=== PATIENT | female | born 1945 | race Caucasian/White ===

== ENCOUNTER 2020-02-07 09:30 | Outpatient (CLI) | payer MEDICARE, SELFPAY ==
--- NOTE | 2020-02-07 11:00 | NEURO_ITS ---
Patient Number: [id number] Impression: # Complains of numbness of hands and feet. # Sensory component bilateral Carpal Tunnel Syndrome. # Normal nerve conduction study of lower extremities. # Normal needle/EMG exam. # Clinical correlation recommended; problem could be related to small fiber neuropathy. Nerve Conduction Studies Anti Sensory Summary Table Stim Site NR Peak (ms) P-T Amp (?V) Site1 Site2 Delta-P (ms) Dist (cm) Oseas (m/s) Left Median Anti Sensory (2-3nd Digit) Wrist 5.2 14.5 Wrist 2-3nd Digit 5.2 14.0 27 Wrist 5.0 6.5 Wrist 2-3nd Digit 5.2 14.0 27 Right Median Anti Sensory (2-3nd Digit) Wrist 4.8 17.1 Wrist 2-3nd Digit 4.8 14.0 29 Wrist 5.0 16.4 Wrist 2-3nd Digit 4.8 14.0 29 Left Radial Anti Sensory (Base 1st Digit) Wrist 2.1 35.5 Wrist Base 1st Digit 2.1 0.0 Right Radial Anti Sensory (Base 1st Digit) Wrist 2.3 24.8 Wrist Base 1st Digit 2.3 0.0 Left Sup Fibular Anti Sensory (Ant Lat Mall) 14 cm 3.3 12.0 14 cm Ant Lat Mall 3.3 16.0 48 Right Sup Fibular Anti Sensory (Ant Lat Mall) 14 cm 3.8 7.1 14 cm Ant Lat Mall 3.8 16.0 42 Left Sural Anti Sensory (Lat Mall) Calf 4.0 8.1 Calf Lat Mall 4.0 16.0 40 Right Sural Anti Sensory (Lat Mall) Calf 3.9 9.9 Calf Lat Mall 3.9 16.0 41 Left Ulnar Anti Sensory (5th Digit) Wrist 2.3 82.5 Wrist 5th Digit 2.3 14.0 61 Right Ulnar Anti Sensory (5th Digit) Wrist 2.3 54.4 Wrist 5th Digit 2.3 14.0 61 Motor Summary Table Stim Site NR Onset (ms) O-P Amp (mV) Site1 Site2 Delta-0 (ms) Dist (cm) Oseas (m/s) Left Median Motor (Abd Poll Brev) Wrist 3.4 2.3 Elbow Wrist 5.0 27.0 54 Elbow 8.4 2.4 ELB/ADM Wrist 0.4 0.0 ELB/ADM 3.8 3.9 Right Median Motor (Abd Poll Brev) Wrist 3.4 2.5 Elbow Wrist 5.0 27.0 54 Elbow 8.4 1.5 Left Peroneal Motor (Vastus Med) Ankle 4.9 1.5 Popit Ankle 6.7 35.0 52 Popit 11.6 1.3 Right Peroneal Motor (Vastus Med) Ankle 5.0 2.9 Popit Ankle 7.4 35.0 47 Popit 12.4 2.5 Left Tibial Motor (Abd Escalona Brev) Ankle 4.8 7.7 Knee Ankle 7.9 40.0 51 Knee 12.7 5.6 Right Tibial Motor (Abd [place] Brev) Ankle 5.0 4.6 Knee Ankle 8.7 40.0 46 Knee 13.7 3.2 Left Ulnar Motor (Abd Dig Minimi) Wrist 2.5 6.9 A Elbow Wrist 5.1 28.0 55 A Elbow 7.6 4.5 Right Ulnar Motor (Abd Dig Minimi) Wrist 3.0 5.7 A Elbow Wrist 4.9 27.0 55 A Elbow 7.9 4.7 F Wave Studies NR F-Lat (ms) L-R F-Lat (ms) Left Median (Mrkrs) (Abd Poll Brev) 29.20 0.00 Right Median (Mrkrs) (Abd Poll Brev) 29.20 0.00 Left Peroneal (Mrkrs) (EDB) 49.84 0.23 Right Peroneal (Mrkrs) (EDB) 50.07 0.23 Left Tibial (Mrkrs) (Abd Hallucis) 50.87 1.76 Right Tibial (Mrkrs) (Abd Hallucis) 49.11 1.76 Left Ulnar (Mrkrs) (Abd Dig Min) 26.44 0.29 Right Ulnar (Mrkrs) (Abd Dig Min) 26.73 0.29 EMG Side Muscle Nerve Root Ins Act Fibs Amp Dur Recrt Comment Right 1stDorInt Ulnar C8-T1 Nml Nml Nml Nml Nml Right Ext Indicis Radial (Post Int) C7-8 Nml Nml Nml Nml Nml Right Ext Digitorum Radial (Post Int) C7-8 Nml Nml Nml Nml Nml Right BrachioRad Radial C5-6 Nml Nml Nml Nml Nml Right PronatorTeres Median C6-7 Nml Nml Nml Nml Nml
== END 2020-02-07 09:31 | disposition home or self-care (01) ==
LOC: ANHNEURO 09:35
PROVIDERS: PCP Family Medicine
DX: G56.03 Carpal tunnel syndrome, bilateral upper limbs (principal); R20.0 Anesthesia of skin; R20.2 Paresthesia of skin
CPT/HCPCS: 95886; 95913

== ENCOUNTER 2020-05-13 01:00 | Outpatient (CLI) | payer MEDICARE, SELFPAY ==
[2020-05-13 19:05] LABS: SARS-CoV-2 RNA PCR Negative
== END 2020-05-13 01:01 | disposition home or self-care (01) ==
LOC: ANHCOVIDDT 01:02
PROVIDERS: PCP Family Medicine; Visit Provider Plastic Surgery
DX: Z01.812 Encounter for preprocedural laboratory examination (principal); Z20.828 Contact with and (suspected) exposure to other viral communicable diseases
CPT/HCPCS: 87635; C9803; U0003

== ENCOUNTER 2020-05-15 01:19 | Day surgery (SDC) | payer MEDICARE, SELFPAY ==
[2020-05-09 13:32] VITALS: BMI 26.2
--- NOTE | 2020-05-15 07:01 | WPDHPUPDATE1 ---
History and Physical Update Update Date/Time: 05/15/20 07:01 History and Physical has been reviewed, including an updated exam of the patient. There are NO changes in the patient's condition. Risks, benefits, and alternatives have been discussed and questions answered. Patient agrees to proceed with procedure.
[2020-05-15 11:34] VITALS: BP 139/74; PULSE 78; RESP 18; TEMP 36.7; O2SAT 98
[2020-05-15 12:03] VITALS: BP 139/67; PULSE 57; RESP 20; O2SAT 97
[2020-05-15 12:13] VITALS: BP 133/61; PULSE 59; RESP 20; O2SAT 97
[2020-05-15] MEDS: LIDO 1%/EPINEPHRINE 1:100,000 20 ML VIAL 6 ML INFILTRATE (12:18)
[2020-05-15 12:23] VITALS: BP 122/60; PULSE 59; RESP 20; O2SAT 97
[2020-05-15 12:27] VITALS: BP 130/68; PULSE 78; RESP 20
--- NOTE | 2020-05-15 12:36 | PM.OP ---
Procedure Note - Brief Procedure Note - Brief Date of procedure: 05/15/20 Pre-op diagnosis: Left Carpal Tunnel Syndrome Post-op diagnosis: same Procedure performed: L OCTR Anesthesia: local Surgeon: Robert Orellana MD Estimated blood loss (mL): 2 Tourniquet time (min): 0 Drains: No Packing: No Pathology: none sent Complications: No immediate complications Condition: stable Disposition: same day
--- NOTE | 2020-05-15 12:47 | PM.PROC ---
Procedure Note - Detailed Date of procedure: 05/15/20 Pre-op diagnosis: Left Carpal Tunnel Syndrome Post-op diagnosis: same Procedure performed: left open carpal tunnel release Description of procedure: the appropriate hand was marked in the holding area. The patient was taken to the operating room placed supine on operating table. Time-out was held and confirmed. The area was prepped and draped in usual fashion. The site was remarked for incision and the area infiltrated with 1% lidocaine with epinephrine. No tourniquet was used. The incision was made as marked and dissection was carried through the subcutaneous tissue to the palmar fascia. This and the carpal ligament were incised with a 15. Blade opening the canal. Under 3 point retraction the ligament was divided distally and proximally to completely release it. There was no unusual anatomy noted the wound was closed with interrupted 5 0 nylon in the usual soft bandage was applied tolerated well. This patient prefers no narcotics postop. Surgeon: Robert Orellana MD
== END 2020-05-15 12:45 | disposition home or self-care (01) ==
PROVIDERS: PCP Family Medicine; Visit Provider Plastic Surgery
PROC: (CPT 64721; principal; 2020-05-15 12:30)
DX: G56.02 Carpal tunnel syndrome, left upper limb (principal); F31.9 Bipolar disorder, unspecified; Z72.0 Tobacco use
CPT/HCPCS: 64721; A9270

== ENCOUNTER 2020-09-15 14:57 | Outpatient (CLI) | payer MEDICARE, SELFPAY | END 2020-09-15 14:58 | disposition home or self-care (01) | LOC: ANHCOVIDVC 14:58 | PROVIDERS: PCP Family Medicine | DX: Z23 Encounter for immunization (principal) | CPT/HCPCS: 0001A; 91300 ==

== ENCOUNTER 2020-10-06 14:49 | Outpatient (CLI) | payer MEDICARE, SELFPAY | END 2020-10-06 14:50 | disposition home or self-care (01) | LOC: ANHCOVIDVC 14:49 | PROVIDERS: PCP Family Medicine | DX: Z23 Encounter for immunization (principal) | CPT/HCPCS: 0002A; 91300 ==

== ENCOUNTER 2020-11-19 12:46 | Outpatient (CLI) | payer MEDICARE, SELFPAY ==
--- NOTE | ~2020-11-19 | XR_ITS ---
EXAMINATION: XR lumbar spine 2-3V DATE: 11/19/2020 13:10 INDICATION: Low back pain TECHNIQUE: Anteroposterior and lateral views of the lumbar spine, and cone-down lateral view of the l umbosacral junction were obtained. COMPARISON: 09/11/2017 FINDINGS: There are 3 mm of anterolisthesis of L4 on L5 and 2 mm of retrolisthesis of L5 on S1. There is unchanged severe loss of intervertebral disc space height at L1-2 and L2-3. There is moderate los s of intervertebral disc space height at L4-5. There is no fracture. The vertebral body heights are m aintained. Moderate facet osteoarthritis is noted in the lower lumbar spine. Small degenerative osteo phytes project from the anterior endplates of multiple vertebral bodies. Calcified atherosclerosis is noted. There are changes of left hip hemiarthroplasty. IMPRESSION: 1. Moderate lumbar spondylosis without acute findings or significant interval change. Reviewed, dictated and finalized at location A.
--- NOTE | ~2020-11-19 | XR_ITS ---
EXAMINATION: XR hip RT min 2V EXAM DATE: 11/19/2020 13:10 INDICATION: No known recent injury provided at this time. Pain of the right hip. TECHNIQUE: Right hip frontal, 'frog leg' projections for interpretation. Comparison is made to prior examination from 09/11/2017. FINDINGS: Smooth right hip femoral head contour, no radiographic evidence of avascular necrosis. The re is mild to moderate primary osteoarthritis. There are no acute fractures or dislocations identifie d. There is no subcutaneous gas. The soft tissue is unremarkable. There are no radiopaque foreign bodies. IMPRESSION: Mild to moderate right hip osteoarthritis. Reviewed, dictated and finalized at location B.
== END 2020-11-19 12:47 | disposition home or self-care (01) ==
PROVIDERS: PCP Family Medicine; Visit Provider Family Medicine
DX: M16.11 Unilateral primary osteoarthritis, right hip (principal); M47.896 Other spondylosis, lumbar region
CPT/HCPCS: 72100; 73502

== ENCOUNTER → 2021-04-13 12:57 | Outpatient (CLI) | payer MEDICARE, SELFPAY ==
--- NOTE | ~2021-04-13 | XR_ITS ---
EXAMINATION: XR hip LT min 2V INDICATION: Left hip pain TECHNIQUE: Two views of the left hip are obtained. COMPARISON: 09/03/2019 FINDINGS: There are changes of left hip arthroplasty. Alignment is normal. There is no fracture. The soft tissues are unremarkable. IMPRESSION: 1. No acute osseous abnormality. Reviewed, dictated and finalized at location A.
== END ==
PROVIDERS: PCP Family Medicine; Visit Provider Family Medicine
DX: M25.552 Pain in left hip (principal)
CPT/HCPCS: 73502

== ENCOUNTER 2022-07-20 14:39 | Outpatient (CLI) | payer MEDICARE, SELFPAY ==
--- NOTE | ~2022-07-20 | XR_ITS ---
Supine and upright views of the abdomen Clinical history: Constipation, bloating Findings: Bowel gas pattern is nonspecific. Moderate to large stool burden noted. No evidence for obs truction or free air. No abnormal mass lesion or calcification is seen. Left hip arthroplasty noted. Degenerative changes of the lumbar spine are present. Impression: Moderate to large stool burden. Reviewed, dictated and finalized at [facility]. PROMENADE TILE SETTER Impression: Moderate to large stool burden.
== END 2022-07-20 14:40 | disposition home or self-care (01) ==
PROVIDERS: PCP Family Medicine; Visit Provider Nurse Practitioner
DX: K59.00 Constipation, unspecified (principal); R14.0 Abdominal distension (gaseous); R19.8 Other specified symptoms and signs involving the digestive system and abdomen; R10.31 Right lower quadrant pain; R10.32 Left lower quadrant pain
CPT/HCPCS: 74018

== ENCOUNTER 2024-06-05 10:56 | Outpatient (CLI) | payer MEDICARE, SELFPAY | END 2024-06-05 10:57 | disposition home or self-care (01) | LOC: ANHAUDIO 10:57 | PROVIDERS: PCP Family Medicine; Visit Provider Family Medicine | DX: H90.3 Sensorineural hearing loss, bilateral (principal) | CPT/HCPCS: 92557; 92567 ==

== ENCOUNTER 2024-08-06 13:00 | Outpatient (RCR) | payer SELFPAY | END 2024-09-20 23:59 | disposition home or self-care (01) | LOC: ANHAUDASC 13:00 | PROVIDERS: PCP Family Medicine; Visit Provider Family Medicine | DX: Z46.1 Encounter for fitting and adjustment of hearing aid (principal) | CPT/HCPCS: 99199; V5261 ==

== ENCOUNTER 2024-10-05 14:59 | Outpatient (RCR) | payer MEDICARE, SELFPAY | END 2025-01-03 23:59 | disposition home or self-care (01) | LOC: ANHAUDASC 14:59 | PROVIDERS: PCP Family Medicine; Visit Provider Family Medicine | DX: Z46.1 Encounter for fitting and adjustment of hearing aid (principal) | CPT/HCPCS: V5014 ==

== ENCOUNTER 2024-11-12 14:19 | Outpatient (CLI) | payer MEDICARE, SELFPAY ==
--- NOTE | ~2024-11-12 | XR_ITS ---
Lumbosacral Spine: AP, oblique, and lateral views Clinical History: Pain COMPARISON: 11/19/2020 Findings: The normal lordotic curve is maintained. No fracture or subluxation. There is severe degene rative disc 9 throughout the lumbar spine at all levels. There is moderate to severe facet arthropath y, especially at L4-L5 and L5-S1. The sacroiliac joints are normally outlined. Impression: Severe degenerative spondylosis, as detailed above. Reviewed, dictated and finalized at location M. Impression: Severe degenerative spondylosis, as detailed above.
--- OUTSIDE RECORDS SUMMARY | 2024-11-12 16:27 | XMS_ITS | Clinical Summary ---
Author Organization [facility] Address [address] [address] Care Team Providers Care Acquisition Cost Estimator Name Role Phone Adeel Partida MD Primary Care Provider [phone] Allergies Active Allergy Reactions Criticality Noted Date Comments Amoxicillin-Pot Clavulanate Dizziness,Nausea only High 12/05/2019 [place] Nausea only Low 12/05/2019 Medications clonazePAM (KlonoPIN) 0.5 mg tablet 1-2 tablets daily 1 11/03/2019 Active levothyroxine (SYNTHROID) 88 mcg tablet daily 12/02/2019 Active dicyclomine (BENTYL) 20 mg tablet 20 mg every 6 (six) hours prn 11/16/2019 Active lisinopriL (PRINIVIL,ZESTR IL) 10 mg tablet 10 mg daily 11/19/2019 Active lamoTRIgine (LaMICtal) 25 mg tablet 2 (two) times a day 11/19/2019 Active tiZANidine (ZANAFLEX) 4 mg tablet 1-2 tablets BID PRN 11/03/2019 Active cholecalciferol (VITAMIN D-3) 2000 unit capsule 2,000 Units daily Active magnesium oxide (MAG-OX) 250 mg (150.8 mg elemental) tabletIndicatio ns:hypomagnesem ia 250 mg daily Active vitamin E (vitamin E) 400 unit capsule 400 Units daily Active Active Problems No known active problems Surgical History Surgery Date Site/Laterality Comments TOTAL HIP ARTHROPLASTY CHOLECYSTECTOMY Medical History Medical History Date Comments Hypertension Bipolar 1 disorder (HCC) Osteoarthritis Diverticulosis IBS (irritable bowel syndrome) Family History Medical History Relation Name Comments Osteoporosis Maternal Grandmother Osteoporosis Mother Heart attack Paternal Grandfather Heart attack Paternal Grandmother Relation Name Status Comments Maternal Grandmother Mother Paternal Grandfather Paternal Grandmother Social History Tobacco Use Types Packs/Day Years Used Date Smoking Tobacco: Every Day Cigarettes Smokeless Tobacco: Never Alcohol Use Standard Drinks/Week Comments Yes 0 (1 standard drink = 0.6 oz pur e alcohol) rarely Personal Safety Answer Date Recorded Getting School Help Needed Not on file 09/29 Comments Unknown Sex and Gender Information Value Date Recorded Sex Assigned at Not on file 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 Gender Identity Not on file Sexual Orientation Not on file Obstetrics History Last Filed Vital Signs Vital Sign Reading Time Taken Comments Blood Pressure 126/84 12/05/2019 1:50 PM CDT Pulse 62 12/05/2019 1:50 PM CDT Temperature - - Respiratory Rate 18 12/05/2019 1:50 PM CDT Oxygen Saturation - - Inhaled Oxygen Concentration - - Weight 65.5 kg (144 lb 6.4 oz) 12/05/2019 1:50 P M CDT Height 157.5 cm (5' 2 ) 12/05/2019 1:50 PM CDT Body Mass Index 26.41 12/05/2019 1:50 PM CDT Plan of Treatment Not on file Insurance [facility] MEDICARE ADVANTAGE Care Teams Acquisition Cost Estimator Relationship Specialty Start Date End Date Adeel Partida MD [address] [place] [address] PCP - General 02/08/17
--- OUTSIDE RECORDS SUMMARY | 2024-11-12 16:27 | XMS_ITS | Clinical Summary ---
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 Gender Identity Not on file Sexual Orientation Not on file Plan of Treatment Health Maintenance Due Date Last Done Comments Hepatitis C 01/16/1964 DTaP, Tdap and Td Vaccines ( 1 - Tdap) 1965 Pneumococcal Vaccine: 50+ Ye ars (1 of 1 - PCV) 01/16/1996 Zoster Vaccines (1 of 2) 01/16/1996 Dexa Scan (General) 2011 RSV Immunization or 60+ Years (1 - 1-dose 75+ series) 2021 COVID-19 Vaccine (2023-2 5 season) 2024 Meningococcal B Vaccine Aged Out No l onger eligible based on patient's age to complete this topic Meningococcal Vaccine Aged Out No nam alhaji eligible based on patient's age to complete this topic RSV Immunizations Under 20 Months Aged Out No longer eligible based on patient's age to complete this topic
--- OUTSIDE RECORDS SUMMARY | 2024-11-12 16:27 | XMS_ITS | Referral Summary ---
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
== END 2024-11-12 14:20 | disposition home or self-care (01) ==
PROVIDERS: PCP Family Medicine; Visit Provider Family Medicine
DX: M43.06 Spondylolysis, lumbar region (principal)
CPT/HCPCS: 72110